=== PATIENT | male | born 1960 | race Caucasian/White ===

== ENCOUNTER 2023-07-31 06:41 | Outpatient (CLI) | payer OTHER, SELFPAY ==
--- NOTE | 2023-07-31 07:15 | MR_ITS ---
[address] [address] Phone:?[phone] Fax:?[phone] Referring Physician Information: Swetha Caro [facility] [address] Phone:?[phone] Fax:?[phone] Patient:?Jorge Grove D.O.B:?1960 Sex:?Male Phone:?[phone] [facility] MRN:?[id number] Exam Date:?07/31/2023 EXAM: MRI of the RIGHT KNEE, without contrast CLINICAL INFORMATION: Male, 63 years old, with fall injury 07/16/2022 INDICATION: Evaluate for PCL or ACL rupture PRIOR SURGERY: None reported. PLAIN FILMS: Radiographs 07/23/2023. COMPARISONS: No prior MRIs available. TECHNICAL INFORMATION: Using a 1.5T MR scanner and a localizing surface coil: sagittals: PD, PDFS coronals: PD, T2FS axials: PD, PDFS SEDATION: None CONTRAST: None FINDINGS: Knee joint: Effusion: Moderate sized right knee effusion with synovitis. Popliteal cyst: None. Loose bodies: None. Subcutaneous and extra-articular soft tissues: Unremarkable. Ligaments: ACL: Intact ACL anteromedial and posterolateral bundles, without sprain or tear. PCL: PCL is abnormal in appearance. There is high-grade tearing involving the mid substance of the ligament within the intercondylar notch (coronal series 7 images 20-23, and axial series 4 images 22-17). The proximal attachment appears normal in signal, however there is thickening and partial-thickness longitudinal tearing which does appear to extend distally. No evidence for abnormal posterior positioning of the proximal tibia in relation to the distal femur. MCL: Intact MCL superficial and deep layers, without injury. LCL: Intact LCL, without injury. Posterolateral corner: Popliteus, biceps femoris, iliotibial band, popliteofibular ligament and lateral gastrocnemius are intact. There is relatively prominent appearance of infiltration of the fat interposed between the distal femur and iliotibial band (coronal series 8 image 16, and axial series 4 image 11). Posteromedial corner: No posteromedial corner soft tissue injury. Semimembranosus, pes anserine tendons and posterior oblique ligament are without injury, tendinopathy or bursitis. Extensor mechanism: Patellar tendon: Intact, without tendinopathy. Quadriceps tendon: Intact, without tendinopathy. Retinacula: Medial and lateral retinacula are intact. Fat pads: Unremarkable infrapatellar Hoffa's, quadriceps and prefemoral fat pads. Medial compartment: Medial meniscus: There is signal hyperintensity in the periphery of the medial meniscus at the meniscocapsular junction (sagittal series 6 image 26, and coronal series 8 image 28). Interstitial delamination is seen at the posterior root of the meniscus. 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 Medial tibial plateau: No chondromalacia or osteochondral abnormality. Lateral compartment: Lateral meniscus: No articular surface, meniscosynovial junction or root tear. No displacement, extrusion or parameniscal cyst. Lateral femoral condyle: No chondromalacia or osteochondral abnormality. Lateral tibial plateau: No chondromalacia or osteochondral abnormality. Patellofemoral joint: Patella: No chondromalacia or osteochondral abnormality. Trochlea: No chondromalacia or osteochondral abnormality. Proximal tibiofibular joint: Unremarkable, without evidence of ligament sprain injury, joint effusion or adjacent marrow edema. Bones: No stress/occult fractures or other marrow edema/pathology. IMPRESSION: 1. High-grade sprain/tear of the mid substance of the PCL as described above. No evidence for abnormal positioning of the proximal tibia in relation to the distal femur. 2. The ACL is intact and normal in appearance. 3. Meniscocapsular sprain of the medial meniscus at the level of the posterior body/horn. Interstitial delamination of the posterior root without displaced medial meniscal flap. 4. 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 5. No lateral meniscus tear. Lateral and patellofemoral articular cartilage is intact. 6. Infiltration of the soft tissues between the lateral femoral condyle and the distal iliotibial band may be seen with distal iliotibial band syndrome in the appropriate clinical setting. 7. Moderate size knee joint effusion with synovitis. KME Electronically signed on 07/31/2023 3:48:00 PM by Lis Leyva M.D.
== END 2023-07-31 06:42 | disposition home or self-care (01) ==
LOC: MRI 06:41
PROVIDERS: PCP Surgery; Visit Provider Physician Assistant Surgical
DX: M25.561 Pain in right knee (principal); S83.522A Sprain of posterior cruciate ligament of left knee, initial encounter; M94.262 Chondromalacia, left knee; M25.462 Effusion, left knee
CPT/HCPCS: 73721